=== PATIENT | female | born 1970 | race African-American/Black ===

== ENCOUNTER 2018-09-11 10:37 | Emergency (ER) | payer OTHER, SELFPAY ==
[2018-09-11 11:26] LABS: Hematocrit 26.5 % (36.0-45.0)
[2018-09-11 11:28] LABS: Protime INR 1.11
[2018-09-11 11:31] LABS: MPV 8.7 fL (7.6-11.3); RBC Red Blood Cell Count 4.44 M/uL (3.86-4.86)
[2018-09-11 11:49] LABS: ALT/SGPT 16 U/L (12-78); AST/SGOT 24 U/L (15-37); Albumin 3.5 g/dL (3.4-5.0); Alkaline Phosphatase 87 U/L (45-117); BUN Blood Urea Nitrogen 13 mg/dL (7-18); Bicarbonate 23 mmol/L (21-32); Bilirubin Direct < 0.1 mg/dL (0-0.2); Bilirubin Total 0.4 mg/dL (0.2-1.0); Glucose Level 96 mg/dL (74-106); Magnesium 2.4 mg/dL (1.8-2.4); NT PRO-BNP 28 pg/mL (<125); Potassium 4.1 mmol/L (3.5-5.1); Protein, Total 9.9 g/dL (6.4-8.2); Sodium Level 136 mmol/L (136-145); Troponin (Emerg Dept Use Only) < 0.02 ng/mL (0.0-0.045)
[2018-09-11] MEDS ORDERED: NA CHLORIDE 0.9% 1,000 ML ONE (11:55)
[2018-09-11 12:17] LABS: Anisocytosis 2+; Blood Morphology Comment NOTED (NOT SEEN); Hypochromasia 2+; Platelet Estimate ADEQ; Poikilocytosis 1+; Target Cells 2+
--- NOTE | 2018-09-11 12:44 | RAD REPORT ---
EXAM DESCRIPTION: CT - Chest For Pe Angio - 09/11/2018 12:27 pm CLINICAL HISTORY: sob COMPARISON: 2010 TECHNIQUE: Dynamically enhanced axial 3 mm thick images of the chest were obtained during administra tion of <100> mL Isovue 370 IV contrast. Coronal and oblique reconstruction images were generated and reviewed. Exam utilizes a protocol for optimal evaluation of pulmonary arterial tree. Maximum intensity projections 3D imaging was utilized All CT scans are performed using dose optimization technique as appropriate and may include automated exposure control or mA/KV adjustment according to patient size. FINDINGS: Small amount of thrombus within a segmental right lower lobe pulmonary artery. No thrombus within the main, right and left main and left pulmonary arteries A thoracic aortic aneurysm is not noted. A pleural effusion is not seen. A pericardial effusion is not seen. A lung consolidation is not present. Minimal bibasilar atelectasis IMPRESSION: Small amount of right lower lobe pulmonary embolus.
--- NOTE | 2018-09-11 12:50 | RAD REPORT ---
EXAM DESCRIPTION: USExtrem Venous W Compress Bil09/11/2018 12:15 pm CLINICAL HISTORY: Bilateral leg swelling COMPARISON: 2013 FINDINGS: Echogenic material consistent with acute thrombus is present within the left common femora l, left superficial femoral and left greater saphenous veins. No thrombus is seen within the right lower extremity Doppler demonstrates good flow. IMPRESSION: Acute thrombus left lower extremity
--- NOTE | 2018-09-11 13:00 | ER ---
Nurse's Notes [facility] Name: Cathy Funk Age: 47 yrs Sex: Female : 1970 Arrival Date: 09/11/2018 Time: 10:39 Bed 17 Private MD: MATTIE SAHU Diagnosis: Acute embolism and thrombosis of deep veins of lower extremity-left common femoral vein, distal;Pulmonary embolism;Anemia, unspecified Presentation: 09/11 10:46 Presenting complaint: Patient states: Left low back pain that radiates around to groin. aj Patient reports left leg feels fatigued and painful. Transition of care: patient was not received from another setting of care. Onset of symptoms was September 09, 2018. Risk Assessment: Do you want to hurt yourself or someone else? Patient reports no desire to harm self or others. Initial Sepsis Screen: Does the patient meet any 2 criteria? No. Patient's initial sepsis screen is negative. Does the patient have a suspected source of infection? No. Patient's initial sepsis screen is negative. Care prior to arrival: None. 10:46 Method Of Arrival: Wheelchair aj 10:46 Acuity: NIKKI 3 aj Triage Assessment: 10:47 General: Appears in no apparent distress. comfortable, Behavior is calm, cooperative, aj appropriate for age. Pain: Complains of pain in coccyx, left lower back, left gluteus cassidy, left gluteal fold, left femoral area and left hip. Neuro: Level of Consciousness is awake, alert, obeys commands, Oriented to person, place, time, situation, Appropriate for age. Respiratory: Airway is patent Respiratory effort is even, unlabored, Respiratory pattern is regular, symmetrical. Derm: Skin is intact, is healthy with good turgor, Skin is pink, warm \T\ dry. normal. Musculoskeletal: Reports pain in buttocks, pelvis and left leg. 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 - Social history:: Smoking status: Patient/guardian denies using tobacco. - Ebola Screening: : Patient negative for fever greater than or equal to 101.5 degrees Fahrenheit, and additional compatible Ebola Virus Disease symptoms Patient denies exposure to infectious person Patient denies travel to an Ebola-affected area in the 21 days before illness onset No symptoms or risks identified at this time. - Family history:: pertinent for. Assessment: 10:40 General: Appears in no apparent distress. well groomed, well developed, well nourished, sg Behavior is calm, cooperative, appropriate for age. Pain: Complains of pain in left calf Quality of pain is described as sharp, stabbing, throbbing. Neuro: Level of Consciousness is awake, alert, obeys commands, Oriented to person, place, time, Speech is normal, Facial symmetry appears normal. Cardiovascular: Capillary refill is brisk in bilateral fingers Patient's skin is warm and dry. Chest pain is denied. Respiratory: Airway is patent Respiratory effort is even, unlabored, Respiratory pattern is regular, symmetrical. GI: No signs and/or symptoms were reported involving the gastrointestinal system. : No signs and/or symptoms were reported regarding the genitourinary system. EENT: No signs and/or symptoms were reported regarding the EENT system. Derm: Skin is intact, is healthy with good turgor, Skin is dry, Skin is normal, Skin temperature is warm. Musculoskeletal: Circulation, motion, and sensation intact. Range of motion: intact in all extremities. 11:00 Reassessment: pt placed to strict bed rest per hospital policy. sg 12:00 Reassessment: Patient appears in no apparent distress at this time. Patient and/or sg family updated on plan of care and expected duration. Pain level reassessed. Patient is alert, oriented x 3, equal unlabored respirations, skin warm/dry/pink. 13:00 Reassessment: Patient appears in no apparent distress at this time. Patient and/or sg family updated on plan of care and expected duration. Pain level reassessed. Patient is alert, oriented x 3, equal unlabored respirations, skin warm/dry/pink. c/o pain in the left calf at this time, pt remains on strict bedrest Patient states feeling better. 14:00 Reassessment: at bedside at this time, pt to be admitted, awaiting admission sg orders, will continue to monitor. 14:10 Reassessment: pt to be discharged to home as ordered by admitting physician . sg Vital Signs: 10:47 BP 140 / 76; Pulse 103; Resp 20; Temp 97.6; Pulse Ox 100% on R/A; Weight 98.88 kg; aj Height 5 ft. 8 in. (172.72 cm); 10:47 Body Mass Index 33.15 (98.88 kg, 172.72 cm) ED Course: 10:39 Patient arrived in ED. dl4 10:40 MATTIE SAHU is Private Physician. dl4 10:40 Patient has correct armband on for positive identification. Bed in low position. Call sg light in reach. Side rails up X2. Pulse ox on. NIBP on. Warm blanket given. Head of bed elevated. 10:46 Wilmar Brown MD is Attending Physician. [facility] 10:47 Triage completed. aj 10:47 Arm band placed on left wrist. Patient placed in an exam room. aj 11:00 EKG done, by industrial maintenance technician. reviewed by Wilmar Brown MD. 3 11:08 X-ray completed. Portable x-ray completed in exam room. Patient tolerated procedure jb2 well. 11:11 Tarik Geiger, RN is Primary Nurse. sg 11:14 XRAY Chest (1 view) In Process Unspecified. EDMS 12:18 US Extremity Venous W Compression Eder In Process Unspecified. EDMS 12:28 CT Chest For PE Angio In Process Unspecified. EDMS 12:58 Ollie Lima MD is Hospitalizing Provider. lc 14:10 MATTIE SAHU is Referral Physician. lc 14:10 Ollie Lima MD is Referral Physician. lc 14:10 Gina Terrell MD is Referral Physician. lc 14:15 No provider procedures requiring assistance completed. IV discontinued, intact, sg bleeding controlled, No redness/swelling at site. Pressure dressing applied. Administered Medications: 13:25 Drug: NS 0.9% 1000 ml Route: IV; Rate: 125 ml/hr; Site: left antecubital; sg 13:25 Drug: NS 0.9% 500 ml Route: IV; Rate: bolus; Site: left antecubital; sg 13:25 Drug: morphine 4 mg Route: IVP; Site: left antecubital; sg 13:25 Drug: Zofran 4 mg Route: IVP; Site: left antecubital; sg 13:30 Drug: Lovenox 1 mg/kg Route: Sub-Q; Site: right lower abdomen; sg 14:06 Not Given (Duplicate Order): Lovenox 1 mg/kg Sub-Q once lc 14:08 Not Given (Lovenox was administered): Eliquis 5 mg PO once; if lovenox not given Outcome: 13:00 Decision to Hospitalize by Provider. lc 14:10 Discharge ordered by . [facility] 14:15 Discharged to home via wheelchair, with family. sg 14:15 Condition: stable 14:15 Discharge instructions given to patient, family, Instructed on discharge instructions, follow up and referral plans. safety practices, Demonstrated understanding of instructions, follow-up care, Prescriptions given X 4. 14:30 Patient left the ED. sg Signatures: Dispatcher [employer] EDTarik Kessler RN RN sg Myers, Amanda, RN RN aj Anderson, Corey, MD MD cha Buechter, Jesse jb2 Denice Gramajo3 Junior Beckett dl4
--- NOTE | 2018-09-11 13:01 | RAD REPORT ---
EXAM DESCRIPTION: Mervin Single View09/11/2018 11:09 am CLINICAL HISTORY: sob COMPARISON: 2013 FINDINGS: The lungs appear clear of acute infiltrate. The heart is normal size IMPRESSION: No acute abnormalities displayed
--- NOTE | 2018-09-11 13:01 | EDPHYS ---
Physician Documentation [facility] Name: Cathy Funk Age: 47 yrs Sex: Female : 1970 Arrival Date: 09/11/2018 Time: 10:39 Bed 17 Private MD: MATTIE SAHU ED Physician Wilmar Brown HPI: 09/11 10:57 This 47 yrs old Black Female presents to ER via Wheelchair with complaints of Leg lc Swelling. 10:57 The patient presents with pain, swelling. The complaints affect the left hamstring, lc posterior aspect of left knee, left calf, left quadriceps, left knee and left ferreira. Context: The problem was sustained at an unknown site. 11:01 Onset: The symptoms/episode began/occurred 2 day(s) ago. Modifying factors: The lc symptoms are alleviated by elevating leg, the symptoms are aggravated by movement, weight bearing. Associated signs and symptoms: Pertinent positives:. The patient has shortness of breath with light activity. Duration: The symptoms are continuous, and are steadily getting worse. The patient's shortness of breath is aggravated by walking, is alleviated by rest. Associated signs and symptoms: Pertinent positives:. Severity of symptoms: At their worst the symptoms were mild in the emergency department the symptoms are unchanged. Severity of symptoms: At their worst the symptoms were mild, in the emergency department the symptoms are unchanged. 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 - Social history:: Smoking status: Patient/guardian denies using tobacco. - Ebola Screening: : Patient negative for fever greater than or equal to 101.5 degrees Fahrenheit, and additional compatible Ebola Virus Disease symptoms Patient denies exposure to infectious person Patient denies travel to an Ebola-affected area in the 21 days before illness onset No symptoms or risks identified at this time. - Family history:: pertinent for. ROS: 11:01 Constitutional: Negative for fever, chills, and weight loss, Eyes: Negative for injury, lc pain, redness, and discharge, ENT: Negative for injury, pain, and discharge, Neck: Negative for injury, pain, and swelling, Cardiovascular: Negative for chest pain, palpitations, and edema, Abdomen/GI: Negative for abdominal pain, nausea, vomiting, diarrhea, and constipation, Back: Negative for injury and pain, : Negative for injury, bleeding, discharge, and swelling, MS/Extremity: Negative for injury and deformity, Skin: Negative for injury, rash, and discoloration, Neuro: Negative for headache, weakness, numbness, tingling, and seizure, Psych: Negative for depression, anxiety, suicide ideation, homicidal ideation, and hallucinations, Allergy/Immunology: Negative for hives, rash, and allergies, Endocrine: Negative for neck swelling, polydipsia, polyuria, polyphagia, and marked weight changes, Hematologic/Lymphatic: Negative for swollen nodes, abnormal bleeding, and unusual bruising. 11:01 Respiratory: Positive for cough, shortness of breath, on exertion. Exam: 11:01 Constitutional: This is a well developed, well nourished patient who is awake, alert, lc and in no acute distress. Head/Face: Normocephalic, atraumatic. Eyes: Pupils equal round and reactive to light, extra-ocular motions intact. Lids and lashes normal. Conjunctiva and sclera are non-icteric and not injected. Cornea within normal limits. Periorbital areas with no swelling, redness, or edema. ENT: Nares patent. No nasal discharge, no septal abnormalities noted. Tympanic membranes are normal and external auditory canals are clear. Oropharynx with no redness, swelling, or masses, exudates, or evidence of obstruction, uvula midline. Mucous membranes moist. Neck: Trachea midline, no thyromegaly or masses palpated, and no cervical lymphadenopathy. Supple, full range of motion without nuchal rigidity, or vertebral point tenderness. No Meningismus. Chest/axilla: Normal chest wall appearance and motion. Nontender with no deformity. No lesions are appreciated. Cardiovascular: Regular rate and rhythm with a normal S1 and S2. No gallops, murmurs, or rubs. Normal PMI, no JVD. No pulse deficits. Abdomen/GI: Soft, non-tender, with normal bowel sounds. No distension or tympany. No guarding or rebound. No evidence of tenderness throughout. Back: No spinal tenderness. No costovertebral tenderness. Full range of motion. Skin: Warm, dry with normal turgor. Normal color with no rashes, no lesions, and no evidence of cellulitis. MS/ Extremity: Pulses equal, no cyanosis. Neurovascular intact. Full, normal range of motion. Neuro: Awake and alert, GCS 15, oriented to person, place, time, and situation. Cranial nerves II-XII grossly intact. Motor strength 5/5 in all extremities. Sensory grossly intact. Cerebellar exam normal. Normal gait. Psych: Awake, alert, with orientation to person, place and time. Behavior, mood, and affect are within normal limits. 11:01 Respiratory: the patient does not display signs of respiratory distress, Respirations: normal, Breath sounds: are clear throughout, Respiratory rate: 20 Vital Signs: 10:47 BP 140 / 76; Pulse 103; Resp 20; Temp 97.6; Pulse Ox 100% on R/A; Weight 98.88 kg; aj Height 5 ft. 8 in. (172.72 cm); 10:47 Body Mass Index 33.15 (98.88 kg, 172.72 cm) aj MDM: 10:46 Patient medically screened. [facility] 11:04 Data reviewed: vital signs, nurses notes, lab test result(s), EKG, radiologic studies, [facility] CT scan, doppler, plain films. 09/11 10:56 Order name: Basic Metabolic Panel; Complete Time: 12:28 [facility] 09/11 10:56 Order name: CBC with Diff; Complete Time: 12:28 [facility] 09/11 10:56 Order name: LFT's; Complete Time: 12:28 [facility] 09/11 10:56 Order name: Magnesium; Complete Time: 12:28 [facility] 09/11 10:56 Order name: NT PRO-BNP; Complete Time: 12:28 [facility] 09/11 10:56 Order name: PT-INR; Complete Time: 12:28 [facility] 09/11 10:56 Order name: Troponin (emerg Dept Use Only); Complete Time: 12:28 [facility] 09/11 10:56 Order name: XRAY Chest (1 view) [facility] 09/11 10:56 Order name: US Extremity Venous W Compression Eder; Complete Time: 12:56 [facility] 09/11 10:56 Order name: CT Chest For PE Angio; Complete Time: 12:56 [facility] 09/11 12:21 Order name: Manual Differential; Complete Time: 12:28 EDMS 09/11 10:56 Order name: EKG; Complete Time: 11:00 [facility] 09/11 10:56 Order name: Cardiac monitoring; Complete Time: 11:10 [facility] 09/11 10:56 Order name: EKG - Nurse/Tech; Complete Time: 11:10 [facility] 09/11 10:56 Order name: IV Saline Lock; Complete Time: 11:09/11 10:56 Order name: Labs collected and sent; Complete Time: 11:10 [facility] 09/11 10:56 Order name: O2 Per Protocol; Complete Time: 11:10 [facility] 09/11 10:56 Order name: O2 Sat Monitoring; Complete Time: 11: [facility] 09/11 13:31 Order name: Diet Heart Healthy; Complete Time: 13:34 sg Administered Medications: 13:25 Drug: NS 0.9% 1000 ml Route: IV; Rate: 125 ml/hr; Site: left antecubital; sg 13:25 Drug: NS 0.9% 500 ml Route: IV; Rate: bolus; Site: left antecubital; sg 13:25 Drug: morphine 4 mg Route: IVP; Site: left antecubital; sg 13:25 Drug: Zofran 4 mg Route: IVP; Site: left antecubital; sg 13:30 Drug: Lovenox 1 mg/kg Route: Sub-Q; Site: right lower abdomen; sg 14:06 Not Given (Duplicate Order): Lovenox 1 mg/kg Sub-Q once lc 14:08 Not Given (Lovenox was administered): Eliquis 5 mg PO once; if lovenox not given sg Disposition: 09/11/18 14:10 Discharged to Home. Impression: Acute embolism and thrombosis of deep veins of lower extremity - left common femoral vein, distal, Pulmonary embolism, Anemia, unspecified. - Condition is Fair. - Discharge Instructions: Anemia, Nonspecific, Deep Vein Thrombosis, Pulmonary Embolism. - Prescriptions for Eliquis 5 mg Oral tablet - take 1 tablet by ORAL route 2 times per day; 180 tablet. Pepcid 20 mg Oral Tablet - take 1 tablet by ORAL route every 12 hours for 10 days; 20 tablet. Vitamin 27- 0.8 mg Oral Tablet - take 1 tablet by ORAL route once daily; 30 tablet. Tylenol- Codeine #3 300-30 mg Oral Tablet - take 2 tablets by ORAL route every 6 hours As needed; 28 tablet. - Medication Reconciliation Form, Thank You Letter, Antibiotic Education, Prescription Opioid Use form. - Follow up: MATTIE SAHU; When: 2 - 3 days; Reason: Recheck today's complaints, Continuance of care, Re-evaluation by your physician. Follow up: Ollie Lima; When: 2 - 3 days; Reason: Recheck today's complaints, Continuance of care, Re-evaluation by your physician. Follow up: Gina Jay; When: 2 - 3 days; Reason: Recheck today's complaints, Continuance of care, Re-evaluation by your physician. - Problem is new. - Symptoms have improved. Signatures: Dispatcher [employer] EDMS Tarik Geiger RN RN sg Myers, Amanda, RN RN aj Anderson, Corey, MD MD cha Corrections: (The following items were deleted from the chart) 14:05 13:00 Hospitalization Ordered by Ollie Lima MD for Inpatient Admission. Preliminary lc diagnosis is Acute embolism and thrombosis of deep veins of lower extremity - left; Anemia, unspecified; Pulmonary embolism. Bed requested for Telemetry/MedSurg (Inpatient). Status is Inpatient Admission. Condition is Stable. Problem is new. Symptoms have improved. UTI on Admission? No. lc 14:30 14:10 09/11/2018 14:10 Discharged to Home. Impression: Acute embolism and thrombosis of sg deep veins of lower extremity - left common femoral vein, distal; Pulmonary embolism; Anemia, unspecified. Condition is Fair. Discharge Instructions: Anemia, Nonspecific, Deep Vein Thrombosis, Pulmonary Embolism. Prescriptions for Eliquis 5 mg Oral tablet - take 1 tablet by ORAL route 2 times per day; 180 tablet, Pepcid 20 mg Oral Tablet - take 1 tablet by ORAL route every 12 hours for 10 days; 20 tablet, Vitamin 27-0.8 mg Oral Tablet - take 1 tablet by ORAL route once daily; 30 tablet, Tylenol-Codeine #3 300-30 mg Oral Tablet - take 2 tablets by ORAL route every 6 hours As needed; 28 tablet. and Forms are Medication Reconciliation Form, Thank You Letter, Antibiotic Education, Prescription Opioid Use. Follow up: MATTIE SAHU; When: 2 - 3 days; Reason: Recheck today's complaints, Continuance of care, Re-evaluation by your physician. Follow up: Ollie Lima; When: 2 - 3 days; Reason: Recheck today's complaints, Continuance of care, Re-evaluation by your physician. Follow up: Gina Jay; When: 2 - 3 days; Reason: Recheck today's complaints, Continuance of care, Re-evaluation by your physician. Problem is new. Symptoms have improved. lc
[2018-09-11] MEDS ORDERED: ENOXAPARIN 100 MG/ML SYR SQ ONE (13:24)
[2018-09-11] MEDS ORDERED: MORPHINE 4 MG/ML SYR ONE (13:24)
[2018-09-11] MEDS ORDERED: ONDANSETRON 4 MG/2 ML VIAL ONE (13:24)
--- NOTE | 2018-09-11 13:26 | EKG ---
Test Date: 2018-09-11 Test Time: 10:59:37 Adult And Pediatric Neurologist: KISHA MEASUREMENT RESULTS: Intervals: Rate: 102 W[place]: 152 QRSD: 86 QT: 348 QTc: 453 [place]: P: 64 WY: 152 QRS: 37 T: 41 INTERPRETIVE STATEMENTS: Sinus tachycardia Otherwise normal ECG Compared to ECG 06/09/2014 10:34:38 Sinus rhythm no longer present Prolonged QT interval no longer present Electronically Signed On 09-11-18 13:25:32 CDT by Trenton Funk
--- NOTE | 2018-09-11 14:42 | P.CNS ---
Date of Consult: 09/11/18 Patient presented to the ER with leg pain. She has a history of recurrent DVT and PE. Was previously on Xarelto. 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 She recieved coiling of these in 2014. She came to the ER and was found to have a DVT and PE. The patient was hemodynamically stable. Have gone to Dr. Hawk office and discussed the patient. As she is stables we can start her on xarelto or eliquis. She recieved a dose of lovenox in the ER. Discussed with the patient. She is comfortable with this course of treatment. Will have her follow up with Farhana Rodriges her PCP.
[2018-09-11 15:06] VITALS: BP 140/76; TEMP 97.6; O2SAT 100
== END 2018-09-11 14:30 | disposition home or self-care (01) ==
LOC: ER 10:37 → SUPCPDRO 10:37 → ER 14:30
DX: I26.99 Other pulmonary embolism without acute cor pulmonale (principal); I82.412 Acute embolism and thrombosis of left femoral vein; D64.9 Anemia, unspecified
CPT/HCPCS: 36415; 71045; 71275; 80048; 80076; 83735; 83880; 84484; 85025; 85610; 93005; 93970; 96372; 96374; 96375; 99284; J1650; J2405; J7030; Q9967